=== PATIENT | male | born 1975 | race Two or more races ===

== ENCOUNTER 2025-02-19 12:23 | Inpatient (IN) | payer MEDICAID ==
[~2025-02-19] VITALS: Ht 165.1 cm; Wt 94.8 kg
[2025-02-19] MEDS: IV NS 0.9% 1,000 ML BAG IV ONE ×2 (12:55→15:30)
[2025-02-19 12:59] LABS: CALCIUM, SERUM 7.8 mg/dL (8.5-10.1); CREATININE 0.8 mg/dL (0.6-1.3); SODIUM SERUM 132 mmol/L (136-145); UREA NITROGEN, BLOOD 11 mg/dL (7-18)
[2025-02-19 13:03] LABS: APPEARANCE,URINE CLEAR (CLEAR); BLOOD, URINE Trace-intact Ery/uL (NEGATIVE); LEUKOCYTE ESTERASE ,URINE Small (NEGATIVE); NITRITE, URINE NEGATIVE (NEGATIVE); UGLUCOSE Negative (NEGATIVE)
[2025-02-19 13:05] LABS: TOTAL PROTEIN, SERUM 6.0 g/dL (6.4-8.2)
[2025-02-19 13:06] LABS: INR 2.15 (0.91-1.10)
[2025-02-19 13:11] LABS: PLATELET COUNT (AUTO) 142 K/uL (150-450); RED BLOOD CELL COUNT(AUTO) 3.08 MIL/uL (4.5-6.0); RED CELL DISTRIBUTION WIDTH 18.7 % (11.5-15.0); WHITE BLOOD COUNT (AUTO) 12.4 K/uL (4.3-11.0)
[2025-02-19 13:12] LABS: ADD URINE CULTURE YES; SQUAMOUS EPITHELIAL CELL,UR Moderate /HPF (None Seen)
[2025-02-19 13:14] LABS: AMPHETAMINE, URINE NEGATIVE (NEGATIVE); BARBITURATE, URINE NEGATIVE (NEGATIVE); BENZODIAZEPINE, URINE NEGATIVE (NEGATIVE); CANNABINOID, URINE NEGATIVE (NEGATIVE); COCCAINE, URINE NEGATIVE (NEGATIVE); OPIATE, URINE NEGATIVE (NEGATIVE)
[2025-02-19 13:17] LABS: ALCOHOL, BLOOD < 3 mg/dL (0-10); ASPARTATE AMINOTRANSFERASE 3 U/L (15-37)
[2025-02-19] MEDS ORDERED: SPIR25TA PO (13:35)
[2025-02-19] MEDS ORDERED: CHOL500062 PO (13:35)
[2025-02-19] MEDS ORDERED: FURO40TA5 PO (13:35)
[2025-02-19] MEDS ORDERED: LACT10SO29 PO (13:35)
[2025-02-19] MEDS ORDERED: MULT-213 PO (13:35)
[2025-02-19] MEDS ORDERED: PANT40TA49 PO (13:35)
[2025-02-19] MEDS ORDERED: FERR325T24 PO (13:35)
[2025-02-19] MEDS ORDERED: CEFTRIAXONE 1GM BAG (ER ONLY) 50 ML IV ONE (13:39)
[2025-02-19 13:50] LABS: SERUM AMMONIA 41 umol/L (11-32)
[2025-02-19] MEDS: CEFTRIAXONE 1GM BAG (ER ONLY) 50 ML IV ONE (13:52)
[2025-02-19 14:13] LABS: LACTIC ACID 2.9 mmol/L (0.4-2.0)
[2025-02-19] MEDS ORDERED: ONDANSETRON HCL/PF 4 MG/2 ML VIAL IVP PRN (15:00)
[2025-02-19] MEDS ORDERED: ZOLPIDEM TARTRATE 5 MG TABLET PO PRN (15:00)
[2025-02-19] MEDS ORDERED: MAGNESIUM HYDROXIDE 30 ML UDC PO PRN (15:00)
[2025-02-19] MEDS ORDERED: MAG HYDROX/AL HYDROX/SIMETH 30 ML UDC PO PRN (15:00)
[2025-02-19] MEDS: AZITHROMYCIN 500 MG in IV D5W 250 ML IV ONE (15:30)
[2025-02-19 16:00] VITALS: BP 116/60; TEMP 97.5; O2SAT 100
[2025-02-19] MEDS: LACTULOSE 10 G/15 ML UDC (PYXIS) PO SCH (18:01)
[2025-02-19 20:34] VITALS: BP 121/69; TEMP 97.9; O2SAT 98
[2025-02-20 00:29] VITALS: BP 127/84; TEMP 98.2; O2SAT 98
[2025-02-20 04:49] VITALS: BP 139/76; TEMP 98.2; O2SAT 98
[2025-02-20] MEDS: PANTOPRAZOLE 40 MG TABLET.DR PO SCH (07:52)
[2025-02-20 08:00] VITALS: BP 133/84; TEMP 97.3; O2SAT 98
[2025-02-20 08:00] LABS: PLATELET COUNT (AUTO) 150 K/uL (150-450); RED BLOOD CELL COUNT(AUTO) 2.91 MIL/uL (4.5-6.0); RED CELL DISTRIBUTION WIDTH 18.9 % (11.5-15.0); WHITE BLOOD COUNT (AUTO) 7.9 K/uL (4.3-11.0)
[2025-02-20 08:50] LABS: SODIUM SERUM 133.0 mmol/L (136-145)
[2025-02-20 08:51] LABS: CALCIUM, SERUM 8.4 mg/dL (8.5-10.1)
[2025-02-20 08:53] LABS: CREATININE 0.7 mg/dL (0.6-1.3); UREA NITROGEN, BLOOD 12.0 mg/dL (7-18)
[2025-02-20 08:54] LABS: PHOSPHORUS 3.0 mg/dL (2.5-4.9)
[2025-02-20] MEDS: POTASSIUM CHLORIDE 20 MEQ TAB.PRT.SR PO ONE (09:45)
[2025-02-20 09:57] LABS: EOSINOPHILS % (MANUAL) 2 % (0-4); LYMPHOCYTES % (MANUAL) 14 % (16-48); MONOCYTES % (MANUAL) 12 % (0-11.0); NEUTROPHILS % (MANUAL) 72 (42-76); PLATELET ESTIMATE ADEQUATE
[2025-02-20 12:00] VITALS: BP 141/72; TEMP 98.1; O2SAT 96
[2025-02-20] MEDS: CEFTRIAXONE 1 G in IV D5W 50 ML IV SCH (12:23)
[2025-02-20] MEDS ORDERED: DOSING PER PHARMACY-VANCOMYCIN IV XX PRN (13:00)
[2025-02-20] MEDS: RIFAXIMIN 550 MG TABLET PO SCH (13:13)
[2025-02-20] MEDS: VANCOMYCIN 1 GM in IV D5W 250ml IV SCH ×2 (13:51→22:12)
[2025-02-20 16:00] VITALS: BP 127/74; TEMP 98.2; TEMP 98.5; O2SAT 97; O2SAT 99
[2025-02-20] MEDS: ACETAMINOPHEN 325 MG TABLET PO PRN (16:07)
[2025-02-20 20:00] VITALS: BP 132/72; TEMP 98.1; O2SAT 98
[2025-02-21] VITALS: BP 131/70; TEMP 97.9; O2SAT 99
[2025-02-21 04:00] VITALS: BP 114/76; TEMP 98.1; O2SAT 100
[2025-02-21 06:37] LABS: URINE SODIUM, RANDOM 5 mmol/l (40-220)
[2025-02-21 08:00] VITALS: BP 125/75; TEMP 98.6; O2SAT 99
[2025-02-21 08:12] LABS: CALCIUM, SERUM 7.3 mg/dL (8.5-10.1); CREATININE 0.6 mg/dL (0.6-1.3); PHOSPHORUS 2.9 mg/dL (2.5-4.9); SODIUM SERUM 129.0 mmol/L (136-145); UREA NITROGEN, BLOOD 13.0 mg/dL (7-18)
[2025-02-21] MEDS: ALBUMIN 25% 25 GM in PREMIX 1 EA IV SCH (09:24)
[2025-02-21] MEDS: FUROSEMIDE 20 MG TABLET PO SCH (09:42)
[2025-02-21] MEDS: SPIRONOLACTONE 25 MG TABLET PO SCH (09:42)
[2025-02-21 12:00] VITALS: BP 136/70; TEMP 97.3; O2SAT 99
[2025-02-21] MEDS: MEROPENEM 1 G in IV NS 0.9% 100 ML IV SCH (12:00)
[2025-02-21 16:00] VITALS: BP 125/82; TEMP 97.9; O2SAT 100
[2025-02-21 19:04] LABS: OSMOLALITY,URINE 525 mOS/kg (340-1090)
[2025-02-21 20:00] VITALS: BP 130/80; TEMP 98.1; O2SAT 96
[2025-02-22] VITALS: BP 120/59; TEMP 97.7; O2SAT 96; O2SAT 99
[2025-02-22] MEDS ORDERED: MEROPENEM 500MG/NS 50 ML PB IV ONE ×2 (02:54→03:00)
[2025-02-22] MEDS: MEROPENEM 500 MG in IV NS 0.9% 50 ML IV SCH (02:59)
[2025-02-22 04:00] VITALS: BP 118/83; TEMP 97.3; O2SAT 97
[2025-02-22 07:20] LABS: LACTIC ACID 1.4 mmol/L (0.4-2.0)
[2025-02-22 07:30] VITALS: BP 119/73; TEMP 97.3; O2SAT 100
[2025-02-22 07:33] LABS: PLATELET COUNT (AUTO) 137 K/uL (150-450); RED BLOOD CELL COUNT(AUTO) 2.80 MIL/uL (4.5-6.0); RED CELL DISTRIBUTION WIDTH 18.8 % (11.5-15.0); WHITE BLOOD COUNT (AUTO) 4.1 K/uL (4.3-11.0)
[2025-02-22 07:49] LABS: CALCIUM, SERUM 7.6 mg/dL (8.5-10.1); CREATININE 0.4 mg/dL (0.6-1.3); SODIUM SERUM 133.0 mmol/L (136-145); UREA NITROGEN, BLOOD 13.0 mg/dL (7-18)
[2025-02-22 08:20] LABS: ASPARTATE AMINOTRANSFERASE 68.0 U/L (15-37); TOTAL PROTEIN, SERUM 5.7 g/dL (6.4-8.2)
[2025-02-22 08:31] LABS: PHOSPHORUS 2.8 mg/dL (2.5-4.9)
[2025-02-22 09:29] LABS: LYMPHOCYTES % (MANUAL) 21 % (16-48); NEUTROPHILS % (MANUAL) 56 (42-76)
[2025-02-22 09:30] LABS: EOSINOPHILS % (MANUAL) 1 % (0-4); MONOCYTES % (MANUAL) 22 % (0-11.0); PLATELET ESTIMATE ADEQUATE
[2025-02-22 16:00] VITALS: BP 122/66; TEMP 97.7; O2SAT 100
[2025-02-22 19:55] VITALS: BP 135/75; TEMP 97.9; O2SAT 98
[2025-02-22 20:00] VITALS: BP 135/75; TEMP 97.9; O2SAT 98
[2025-02-23] VITALS: BP 112/65; TEMP 98.1; O2SAT 98
[2025-02-23 00:02] VITALS: BP 112/65; TEMP 98.1; O2SAT 98
[2025-02-23 04:00] VITALS: BP 116/74; TEMP 98.2; O2SAT 98
[2025-02-23 06:26] LABS: PLATELET COUNT (AUTO) 137 K/uL (150-450); RED BLOOD CELL COUNT(AUTO) 2.73 MIL/uL (4.5-6.0); RED CELL DISTRIBUTION WIDTH 18.6 % (11.5-15.0); WHITE BLOOD COUNT (AUTO) 5.3 K/uL (4.3-11.0)
[2025-02-23 07:30] VITALS: BP 119/72; TEMP 98.1; O2SAT 97
[2025-02-23 07:53] LABS: ASPARTATE AMINOTRANSFERASE 73.0 U/L (15-37); CALCIUM, SERUM 7.3 mg/dL (8.5-10.1); CREATININE 0.5 mg/dL (0.6-1.3); PHOSPHORUS 2.8 mg/dL (2.5-4.9); SODIUM SERUM 134.0 mmol/L (136-145); TOTAL PROTEIN, SERUM 5.5 g/dL (6.4-8.2); UREA NITROGEN, BLOOD 12.0 mg/dL (7-18)
[2025-02-23 10:02] LABS: BASOPHILS % (MANUAL) 0 % (0.0-2.0); EOSINOPHILS % (MANUAL) 2 % (0-4); LYMPHOCYTES % (MANUAL) 19 % (16-48); MONOCYTES % (MANUAL) 14 % (0-11.0); NEUTROPHILS % (MANUAL) 65 (42-76); PLATELET ESTIMATE DECREASED
[2025-02-23 16:00] VITALS: BP 131/82; TEMP 97.9; O2SAT 95
[2025-02-23 20:00] VITALS: BP 135/75; TEMP 98.4; O2SAT 97
[2025-02-23] MEDS: Z GUARD REMEDY 4 OZ OINT TP PRN (23:46)
[2025-02-24 07:16] LABS: ASPARTATE AMINOTRANSFERASE 73.0 U/L (15-37); CALCIUM, SERUM 7.2 mg/dL (8.5-10.1); CREATININE 0.5 mg/dL (0.6-1.3); PLATELET COUNT (AUTO) 130 K/uL (150-450); RED BLOOD CELL COUNT(AUTO) 2.59 MIL/uL (4.5-6.0); RED CELL DISTRIBUTION WIDTH 19.3 % (11.5-15.0); SODIUM SERUM 133.0 mmol/L (136-145); TOTAL PROTEIN, SERUM 5.4 g/dL (6.4-8.2); UREA NITROGEN, BLOOD 13.0 mg/dL (7-18); WHITE BLOOD COUNT (AUTO) 5.2 K/uL (4.3-11.0)
[2025-02-24 08:00] VITALS: BP 148/74; TEMP 98.1; O2SAT 98
[2025-02-24] MEDS ORDERED: RIFA550T PO (09:25)
[2025-02-24] MEDS ORDERED: SPIR50TA PO (09:26)
[2025-02-24] MEDS ORDERED: ERTA1VIA IJ (09:27)
[2025-02-24 09:34] LABS: EOSINOPHILS % (MANUAL) 5 % (0-4); LYMPHOCYTES % (MANUAL) 18 % (16-48); MONOCYTES % (MANUAL) 20 % (0-11.0); NEUTROPHILS % (MANUAL) 57 (42-76); PLATELET ESTIMATE DECREASED
[2025-02-24 16:00] VITALS: BP 141/69; TEMP 97.9; O2SAT 100
== END 2025-02-24 22:00 | DRG 720 ==
LOC: ER 12:34 → TELE 15:57 → MED 17:26 → TELE 21:11 → MED 02-23 16:29
PROVIDERS: ATTEND Internal Medicine
PROC: 0W9G3ZX Drainage of Peritoneal Cavity, Percutaneous Approach, Diagnostic (ICD-10-PCS; principal; 2025-02-20)
DX: A40.8 Other streptococcal sepsis (principal); E44.1 Mild protein-calorie malnutrition; E87.20 Acidosis, unspecified; K76.82 Hepatic encephalopathy; E46 Unspecified protein-calorie malnutrition; K83.1 Obstruction of bile duct; D68.9 Coagulation defect, unspecified; E87.1 Hypo-osmolality and hyponatremia; D63.8 Anemia in other chronic diseases classified elsewhere; K70.31 Alcoholic cirrhosis of liver with ascites; K76.6 Portal hypertension; E88.09 Other disorders of plasma-protein metabolism, not elsewhere classified; N39.0 Urinary tract infection, site not specified; E87.6 Hypokalemia; I10 Essential (primary) hypertension; K21.9 Gastro-esophageal reflux disease without esophagitis; B96.20 Unspecified Escherichia coli [E. coli] as the cause of diseases classified elsewhere; Z16.12 Extended spectrum beta lactamase (ESBL) resistance; Z79.899 Other long term (current) drug therapy; F10.91 Alcohol use, unspecified, in remission; E80.6 Other disorders of bilirubin metabolism; D69.59 Other secondary thrombocytopenia
CPT/HCPCS: 36415; 49083; 70450-TC; 71045-TC; 76705-TC; 80048-TC; 80053-TC; 80076-TC; 80202-TC; 81001; 82140-TC; 82962-TC; 83605-TC; 83735-TC; 83935-TC; 84100-TC; 84300-TC; 84443-TC; 84484-TC; 84550-TC; 85025-TC; 85027-TC; 85730-TC; 87040-TC; 87081-TC; 87086-TC; 87186-TC; 93307-TC; 97110-TC; 97116-TC; 97530-TC; A4216; A4223; A6254; G0378; G0480; J0456; J0696; J2185; J3373; J7030; J7050; J7060; P9047